=== PATIENT | male | born 1990 | race Hispanic/Latino ===

== ENCOUNTER 2022-12-08 07:53 | Emergency (ER) | payer OTHER, SELFPAY ==
--- NOTE | ~2022-12-08 | XR_ITS ---
XR ribs LT 2V w CXR 2V DATE: 12/08/2022 08:39 INDICATION: Left chest wall pain TECHNIQUE: PA and lateral views. 3 views of the left ribs. COMPARISON: None FINDINGS: No left rib fracture or bone destruction is detected. Normal heart size. No hilar or mediastinal enlargement. No pulmonary infiltrate or consolidation, ple ural effusion or pulmonary vascular congestion or pneumothorax. IMPRESSION: Negative chest Negative left ribs Reviewed, dictated and finalized at location A.
--- NOTE | 2022-12-08 08:01 | ECG_ITS ---
Measurements Intervals [place] Rate: 54 P: 40 ME: 146 QRS: 15 QRSD: 94 T: 10 QT: 394 QTc: 376 Interpretive Statements SINUS BRADYCARDIA WITH SINUS ARRHYTHMIA EARLY REPOLARIZATION [ST ELEVATION WITH NORMALLY INFLECTED T WAVE] NORMAL ECG NO PREVIOUS ECG AVAILABLE FOR COMPARISON Electronically Signed On 12-08-2022 8:20:06 CDT by Sage Cook M.D.
[2022-12-08 08:11] VITALS: BP 135/89; PULSE 100; RESP 18; TEMP 36.5; O2SAT 100
[2022-12-08 08:16] VITALS: BP 135/89; PULSE 55; RESP 18; O2SAT 100
[2022-12-08 08:31] VITALS: BP 126/84; PULSE 51; RESP 15; O2SAT 99
--- NOTE | 2022-12-08 08:36 | PC.NURSE ---
pt to xray.
[2022-12-08 08:41] VITALS: BP 128/91; PULSE 50; RESP 19; O2SAT 100
[2022-12-08] MEDS: ACETAMINOPHEN 500 MG TABLET 1000 MG PO (08:41)
[2022-12-08] MEDS: LIDOCAINE 5% PATCH 1 PATCH TRANSDERM (08:42)
--- NOTE | 2022-12-08 08:44 | ED.GENADULT ---
HPI - General Adult General Chief complaint: Unspecified Stated complaint: chest injury 5d ago Time Seen by Provider: 12/08/22 08:12 History of Present Illness HPI narrative: This is a 32-year-old male with no significant past medical history who presents the emergency department complaining of left-sided chest pain after being struck in the chest with a soccer ball. 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 Since then he has gradually developed 8/10 sharp, stabbing pain that worsens with movement and with picking up his child. He denies cough, difficulty breathing, loss of consciousness or weakness or numbness elsewhere. Related Data Allergies Allergy/AdvReac Type Severity Reaction Status Date / Time No Known Allergies Allergy Verified 12/08/22 08:17 Review of Systems Review of Systems: CONSTITUTIONAL: Denies fever, chills, or sweats. CARDIOVASCULAR: Left-sided chest pain denies palpitations, or edema. RESPIRATORY: Denies cough or dyspnea. GASTROINTESTINAL: Denies abdominal pain, nausea, vomiting, or diarrhea. GENITOURINARY: Denies dysuria or hematuria. SKIN: Denies rash or itching. MUSCULOSKELETAL: Denies back pain, joint pain, or myalgia. NEUROLOGIC: Denies headache, numbness, dizziness, or weakness. PSYCHIATRIC: Denies anxiety or depression. PMFSH Past Medical History Medical History (Updated 12/08/22 @ 09:41 by Chago Guzmán MD) No significant past medical history Surgical History Surgical History (Updated 12/08/22 @ 08:46 by Chago Guzmán MD) No significant past surgical history Exam Narrative: GENERAL: Well-developed, well-nourished, and in no acute distress. HEAD: Normocephalic, atraumatic. EYES: PERRLA and EOMI. CHEST: Clear to auscultation. No respiratory distress. No wheezes rales or rhonchi. Tender to palpation over the anterior left chest wall, greatest at the fourth and fifth rib spaces HEART: Regular rate and rhythm. No murmur heard. Normal peripheral pulses. ABDOMEN: Soft, nontender, nondistended, normal active bowel sounds. EXTREMITIES: Normal range of motion. No edema. SKIN: Warm, dry, no rash. NEURO: No focal deficits. Alert and oriented x3. PSYCH: Normal mood and affect. Course Course Emergency Course: 09:37 - X-ray not concerning for rib fracture, pneumothorax or mass. EKG not concerning for ischemia. Troponin negative. I suspect the patient's pain is due to contusion versus costochondritis. Will discharge with NSAIDs and Lidoderm patches. Discussed return and emergency precautions including signs/symptoms of respiratory distress and ACS. The patient voiced understanding and is comfortable with the plan. All questions answered to his satisfaction. Vital Signs Vital signs: Vital Signs Temperature 97.7 F 12/08/22 08:11 Pulse Rate 100 12/08/22 08:11 Respiratory Rate 18 12/08/22 08:11 Blood Pressure 135/89 12/08/22 08:11 Pulse Oximetry 100 12/08/22 08:11 Oxygen Delivery Room Air 12/08/22 08:11 Temperature 97.7 F 12/08/22 08:11 Pulse Rate 100 12/08/22 08:11 Respiratory Rate 18 12/08/22 08:11 Blood Pressure 135/89 12/08/22 08:11 Pulse Oximetry 100 12/08/22 08:11 Oxygen Delivery Room Air 12/08/22 08:11 Medical Decision Making [facility] Narrative Medical decision making narrative: Plan: Labs, pain control, imaging, reassess Differential Diagnosis Differential Diagnosis: ACS, arrhythmia, contusion, rib fracture, pneumothorax, other Vital Signs Vital Signs: Vital Signs Temperature 97.7 F 12/08/22 08:11 Pulse Rate 100 12/08/22 08:11 Respiratory Rate 18 12/08/22 08:11 Blood Pressure 135/89 12/08/22 08:11 Pulse Oximetry 100 12/08/22 08:11 Oxygen Delivery Room Air 12/08/22 08:11 Temperature 97.7 F 12/08/22 08:11 Pulse Rate 100 12/08/22 08:11 Respiratory Rate 18 12/08/22 08:11 Blood Pressure 135/89 12/08/22 08:11 Pulse Oxim
[2022-12-08 09:17] LABS: Troponin I < 0.012 ng/mL (0.000-0.034)
[2022-12-08 09:58] VITALS: BP 130/86; PULSE 58; RESP 16; O2SAT 98
== END 2022-12-08 09:59 | disposition home or self-care (01) ==
PROVIDERS: Emergency Provider Preventive Medicine Aerospace Medicine
DX: M94.0 Chondrocostal junction syndrome [Tietze] (principal); R00.1 Bradycardia, unspecified; W51.XXXA Accidental striking against or bumped into by another person, initial encounter; W21.02XA Struck by soccer ball, initial encounter; Y93.66 Activity, soccer
CPT/HCPCS: 36415; 71046; 71100; 84484; 93005; 99284; A9270